=== PATIENT | female | born 1990 | race African-American/Black ===

== ENCOUNTER 2018-02-03 20:51 | Observation (INO) ==
[2018-02-03 21:45] LABS: Basophils % 0.3 % (0.0-0.8); Hematocrit 29.2 VOL% (35.7-47.0); Hemoglobin 9.2 GM/DL (12.0-16.0); Immature Granulocytes % 0.1 %; Immature Granulocytes Absolute 0.01 #; Lymphocytes # 1.5 10*3/uL (1.4-4.0); Mean Corpuscular HGB Conc 31.5 GM/DL (32-36); Mean Corpuscular Hemoglobin 25 PG (27-34); Mean Platelet Volume 11.8 FL (9.6-12.0); Monocytes # 0.7 10*3/uL (0.11-0.8); Neutrophils # 4.9 10*3/uL (1.4-7.4); Neutrophils % 68.6 % (38.7-73.9); Platelet Count 211 T/CUMM (130-400); Red Blood Count 3.65 MC/CUMM (3.8-5.5); Red Cell Distribution Width 14.6 % (9.3-17.3); White Blood Count 7.1 T/CUMM (4-12)
[2018-02-03] MEDS ORDERED: ONDANSETRON 4 MG/2 ML VIAL IV PRN (22:33)
[2018-02-03] MEDS ORDERED: BISACODYL 10 MG SUPP RECTAL PRN (22:33)
[2018-02-03] MEDS ORDERED: MAGNESIUM HYDROXIDE SUSP 30 ML UDCUP PO PRN (22:33)
[2018-02-03] MEDS ORDERED: SODIUM CHLORIDE 0.9% 1,000 ML IV SCH (23:00)
[2018-02-04] MEDS: KETOROLAC 15 MG/1 ML VIAL IV PRN ×2 (00:01→06:25)
[2018-02-04 00:25] LABS: Basophils % 0.3 % (0.0-0.8); Eosinophils % 0.2 % (0.00-10.9); Hematocrit 30.3 VOL% (35.7-47.0); Hemoglobin 9.7 GM/DL (12.0-16.0); Immature Granulocytes % 0.3 %; Immature Granulocytes Absolute 0.02 #; Lymphocytes # 1.7 10*3/uL (1.4-4.0); Lymphocytes % 28.9 % (21.3-54.2); Mean Corpuscular Hemoglobin 25 PG (27-34); Mean Corpuscular Volume 78.9 FL (87-102); Mean Platelet Volume 11.3 FL (9.6-12.0); Monocytes # 0.5 10*3/uL (0.11-0.8); Neutrophils # 3.6 10*3/uL (1.4-7.4); Neutrophils % 61.3 % (38.7-73.9); Platelet Count 201 T/CUMM (130-400); Red Blood Count 3.84 MC/CUMM (3.8-5.5); Red Cell Distribution Width 14.6 % (9.3-17.3); White Blood Count 5.8 T/CUMM (4-12)
[2018-02-04 00:32] LABS: PT Patient Result 11.2 SECS
[2018-02-04] MEDS ORDERED: OXYTOCIN/LR 20 UNIT/1,000 ML BAG IV ONE ×2 (06:58→09:29)
[2018-02-04] MEDS ORDERED: FAMOTIDINE 20 MG/2 ML VIAL IV ONE ×2 (08:38→08:42)
[2018-02-04] MEDS ORDERED: ceFAZolin 1,000 MG VIAL ONE (09:12)
[2018-02-04] MEDS ORDERED: BISACODYL 10 MG SUPP RECTAL PRN (09:26)
[2018-02-04] MEDS ORDERED: ONDANSETRON 4 MG/2 ML VIAL IV PRN ×2 (09:26→10:02)
[2018-02-04] MEDS ORDERED: ACETAMINOPHEN 325 MG TABLET PO PRN (09:26)
[2018-02-04] MEDS ORDERED: oxyCODONE/ACETAMINOPHEN 5-325 MG TABLET PO PRN (09:26)
[2018-02-04] MEDS ORDERED: DOCUSATE SODIUM 100 MG CAPSULE PO PRN (09:26)
[2018-02-04] MEDS ORDERED: MAGNESIUM HYDROXIDE SUSP 30 ML UDCUP PO PRN (09:26)
[2018-02-04] MEDS ORDERED: BENZOCAINE/MENTHOL LOZENGE 18/BOX PO PRN (09:26)
[2018-02-04] MEDS ORDERED: LACTATED RINGERS 1,000 ML IV SCH (09:30)
[2018-02-04] MEDS ORDERED: SEVOFLURANE 1 UNIT/15 MINUTE INH ONE (09:39)
[2018-02-04] MEDS ORDERED: fentaNYL 100 MCG/2 ML VIAL ONE (09:39)
[2018-02-04] MEDS ORDERED: ONDANSETRON 4 MG/2 ML VIAL ONE (09:39)
[2018-02-04] MEDS ORDERED: PROPOFOL 200 MG/20 ML VIAL IV ONE (09:39)
[2018-02-04] MEDS ORDERED: HYDROmorphone 2 MG/1 ML VIAL IV PRN (10:02)
[2018-02-04] MEDS: IBUPROFEN 800 MG TABLET PO PRN (15:32)
[2018-02-04] MEDS: FLUTICASONE 50 MCG NASAL SPRAY 16 GM BOTTLE BOTH NARES SCH ×2 (16:49→21:06)
[2018-02-04] MEDS: DOCUSATE SODIUM 100 MG CAPSULE PO SCH (20:55)
[2018-02-05] MEDS: IBUPROFEN 800 MG TABLET PO PRN (05:36)
[2018-02-05 05:57] LABS: Basophils % 0.2 % (0.0-0.8); Eosinophils # 0.2 10*3/uL (0.0-0.87); Eosinophils % 4.5 % (0.00-10.9); Hematocrit 24.5 VOL% (35.7-47.0); Hemoglobin 7.8 GM/DL (12.0-16.0); Immature Granulocytes % 0.4 %; Immature Granulocytes Absolute 0.02 #; Lymphocytes # 1.3 10*3/uL (1.4-4.0); Lymphocytes % 25.9 % (21.3-54.2); Mean Corpuscular HGB Conc 31.8 GM/DL (32-36); Mean Corpuscular Hemoglobin 25 PG (27-34); Mean Platelet Volume 11.9 FL (9.6-12.0); Monocytes # 0.6 10*3/uL (0.11-0.8); Monocytes % 11.8 % (1.7-12.7); Neutrophils # 2.8 10*3/uL (1.4-7.4); Neutrophils % 57.2 % (38.7-73.9); Platelet Count 174 T/CUMM (130-400); Red Cell Distribution Width 14.6 % (9.3-17.3); White Blood Count 4.9 T/CUMM (4-12)
[2018-02-05] MEDS: DOCUSATE SODIUM 100 MG CAPSULE PO SCH (07:09)
[2018-02-05 07:36] VITALS: BP 108/64
== END 2018-02-05 10:55 | disposition home or self-care (01) ==
LOC: EDBD → EDUNIT# → N.ED 20:51 → N.EDINP 20:51 → N.OB 23:08
PROVIDERS: ADMIT Specialist; ATTEND Specialist